=== PATIENT | male | born 1940 | race Caucasian/White ===

== ENCOUNTER 2020-06-15 20:09 | Inpatient (IN) | payer MEDICARE, BC ==
[~2020-06-15] VITALS: Ht 185.4 cm; Wt 94.8 kg
[2020-06-24] MEDS ORDERED: SINEQUAN50 MG PO (10:22)
[2020-06-24] MEDS ORDERED: FLOMAX0.4 MG PO (10:23)
[2020-06-24] MEDS ORDERED: COREG25 MG PO (10:23)
[2020-06-24] MEDS ORDERED: ATARAX 25 MG TA25 MG PO (10:24)
[2020-06-24] MEDS ORDERED: ROPINIROLE HCL0.5 MG PO (10:24)
[2020-06-24] MEDS ORDERED: METHOCARBAMOL500 MG PO (10:25)
[2020-06-24] MEDS ORDERED: VITAMIN D3 PO (10:25)
[2020-06-24] MEDS ORDERED: [UNRECOGNIZED DRUG - OTHER] PO (10:26)
[2020-06-24] MEDS ORDERED: SYSTANE ULTRA EYE EACH EYE (10:27)
[2020-06-24] MEDS ORDERED: POTASSIUM99 M1 PO (10:27)
[2020-06-24] MEDS ORDERED: BENADRYL25 MG PO (10:28)
[2020-06-24] MEDS ORDERED: CETIRIZINE HCL5 M1 PO (10:28)
[2020-06-24] MEDS ORDERED: ACETAMINOPHEN325 MG PO (10:29)
[2020-06-24 11:02] LABS: BASOPHILS 0.7 % (0-2); EOSINOPHILS 5.9 % (0-7); HEMATOCRIT 41.2 % (42.0-54.0); HEMOGLOBIN 13.7 g/dL (13.5-17.5); IMMATURE GRANULOCYTES 1.6 % (0-5); LYMPHOCYTES 34.2 % (15-50); MCH 31.4 pg (26.0-34.0); MCHC 33.3 g/dL (31.0-37.0); MCV 94.5 fL (80.0-100.0); MEAN PLATELET VOLUME 9.9 fL (7.4-10.4); MONOCYTES 10.1 % (2-11); NEUTROPHILS 47.5 % (40-80); RBC 4.36 10x6/uL (4.20-6.10); RDW 13.3 % (11.5-14.5); WBC 4.3 10x3/uL (4.8-10.8)
[2020-06-24 11:08] LABS: ANION GAP 9.3 mmol/L (8-16); CALCIUM 8.7 mg/dL (8.5-10.1); CARBON DIOXIDE 29.1 mmol/L (21.0-32.0); CREATININE - SERUM 1.1 mg/dL (0.6-1.3); POTASSIUM - SERUM 4.4 mmol/L (3.5-5.1)
[2020-06-24 11:48] LABS: PLATELET COUNT 114 10x3/uL (130-400)
[2020-06-24] MEDS ORDERED: KENALOG 0.1 % 115 GM TOPICAL (13:48)
[2020-06-24] MEDS ORDERED: CLOBETASOL PROP15 GM TP (13:49)
[2020-06-28] VITALS (9 sets, daily range): BP systolic 129–163; BP diastolic 49–92; BMI 27.7; BMI 27.6
--- NOTE | 2020-06-28 12:47 | NUR ---
NO SCD'S PLACED DUE TO HISTORY OF DVT, KARANRJUNE.
--- NOTE | 2020-06-28 20:00 | NUR ---
PT LYING IN BED SLEEPING WITHOUT DISTRESS, DAUGHTER AT BEDSIDE. SCDS PLACED ON PT BILAT. IV LEFT HAND INFUSING NS @ 125. O2 2L/NC. PROVIDED INCENTIVE SPIROMETER AND INSTRUCTED ON USE. PT WAS ABLE TO DEMONSTRATE APPROPRIATE USE. PROVIDED ICE CHIPS. DENIES OTHER NEEDS AT THIS TIME. CL IN REACH, WILL CTM
--- NOTE | 2020-06-28 22:00 | NUR ---
PT STATES PAIN 12/14, DENIES NEEDS. CL IN REACH, WILL CTM
[2020-06-29] VITALS: BP 160/88
--- NOTE | 2020-06-29 01:30 | NUR ---
ASSISTED PT TO SITTING POSITION, STATES LYING IN BED SO LONG MAKES HIS BACK HURTS. INSTRUCTED TO USE PILLOW TO SPLINT FOR MOVEMENT, COUGHING AND DEEP BREATHING. PT USED INCENTIVE SPIROMETER. PROVIDED LEMON MOUTH SWABS, ICE CHIPS AND CHAPSTICK FOR DRY MOUTH. PLACED HUMIDIFICATION ON O2. DENIES OTHER NEEDS AT THIS TIME. CL IN REACH, WILL CTM
[2020-06-29 04:00] VITALS: BP 150/80
[2020-06-29 06:53] LABS: BASOPHILS 0 % (0-2); EOSINOPHILS 0 % (0-7); HEMATOCRIT 37.8 % (42.0-54.0); HEMOGLOBIN 12.8 g/dL (13.5-17.5); IMMATURE GRANULOCYTES 0.3 % (0-5); MCH 31.4 pg (26.0-34.0); MCHC 33.9 g/dL (31.0-37.0); MCV 92.6 fL (80.0-100.0); MEAN PLATELET VOLUME 9.9 fL (7.4-10.4); MONOCYTES 9.2 % (2-11); NEUTROPHILS 74.5 % (40-80); PLATELET COUNT 118 10x3/uL (130-400); RBC 4.08 10x6/uL (4.20-6.10); RDW 13.1 % (11.5-14.5); WBC 7.8 10x3/uL (4.8-10.8)
[2020-06-29 07:17] LABS: CALC OSMOLALITY 275 mosm/kg (275-300); CALCIUM 8.2 mg/dL (8.5-10.1); CARBON DIOXIDE 22.7 mmol/L (21.0-32.0); CHLORIDE - SERUM 105 mmol/L (98-107); CREATININE - SERUM 0.9 mg/dL (0.6-1.3); GLUCOSE 95 mg/dL (74-106); POTASSIUM - SERUM 4.3 mmol/L (3.5-5.1); SODIUM 138 mmol/L (136-145); UREA NITROGEN 12 mg/dL (7-18); eGFR NON AFRICAN AMERICAN 86 mL/min (90-120)
[2020-06-29 08:37] VITALS: BP 164/77
[2020-06-29 12:57] VITALS: BP 158/68
[2020-06-29 14:39] VITALS: Ht 185.4 cm; Wt 94.8 kg
[2020-06-29 17:19] VITALS: BP 125/63
[2020-06-29 20:00] VITALS: BP 134/65
--- NOTE | 2020-06-29 20:00 | NUR ---
PT SITTING UP IN BED WITHOUT DISTRESS, AOX4. DAUGHTER AT BEDSIDE. STATES PAIN IN ABD 1/10 BUT THAT PAIN IN RIGHT HAND 5/10 FROM IV. REMOVED EXTRA IV PER DAUGHTER REQUEST. SHE STATES HE WILL NOT BE ABLE TO SLEEP TONIGHT WITH IT. IV LEFT HAND CONTINUES INFUSING NS @ 125 AND DILAUDID SAILMAKER. PT USING FOR PAIN. STATES THROAT IS HURTING BUT IS BETTER WITH NASAL SPRAY. PROVIDED ICE CHIPS. REFUSES SCDS TONIGHT. DENIES OTHER NEEDS. CL IN REACH, WILL CTM
[2020-06-30] VITALS: BP 119/86
[2020-06-30 04:00] VITALS: BP 174/77
--- NOTE | 2020-06-30 07:05 | NUR ---
A&O RESTING IN BED WITH EYES OPEN. DAUGHTER AT BEDSIDE. VERY [place], HEARING AID TO RIGHT EAR. POD #2 HALS HEMICOLECTOMY, MIDLINE INCISION WITH 2 LAP SITES TO ABDOMEN, C/D/I. REFUSED SCDS. UP WITH PHYSICAL THERAPY. IV TO LEFT HAND, NS INFUSING @ 125ML/HR. SITE PATENT WITHOUT REDNESS OR SWELLING. DILAUDID HOMEMAKING REHABILITATION CONSULTANT MANAGING PAIN AT THIS TIME. NO S/S OF ACUTE DISTRESS NOTED. CALL LIGHT IN REACH. WILL CONTINUE TO MONITOR.
[2020-06-30 07:24] LABS: BASOPHILS 0.4 % (0-2); EOSINOPHILS 0.4 % (0-7); HEMATOCRIT 34.2 % (42.0-54.0); HEMOGLOBIN 11.2 g/dL (13.5-17.5); IMMATURE GRANULOCYTES 0.2 % (0-5); LYMPHOCYTES 27.8 % (15-50); MCH 30.8 pg (26.0-34.0); MCHC 32.7 g/dL (31.0-37.0); MEAN PLATELET VOLUME 9.7 fL (7.4-10.4); MONOCYTES 12.5 % (2-11); NEUTROPHILS 58.7 % (40-80); PLATELET COUNT 108 10x3/uL (130-400); RBC 3.64 10x6/uL (4.20-6.10); RDW 13.5 % (11.5-14.5)
[2020-06-30 07:33] LABS: WBC 5.3 10x3/uL (4.8-10.8)
[2020-06-30 08:10] LABS: CARBON DIOXIDE 22.8 mmol/L (21.0-32.0); CHLORIDE - SERUM 108 mmol/L (98-107); CREATININE - SERUM 0.7 mg/dL (0.6-1.3); GLUCOSE 88 mg/dL (74-106); SODIUM 139 mmol/L (136-145); eGFR NON AFRICAN AMERICAN > 90 mL/min (90-120)
[2020-06-30 08:11] LABS: CALC OSMOLALITY 278 mosm/kg (275-300); POTASSIUM - SERUM 3.6 mmol/L (3.5-5.1); UREA NITROGEN 17 mg/dL (7-18)
--- NOTE | 2020-06-30 08:28 | NUR ---
FAMILY AT BEDSIDE.PATIENT IS GETTING UP TO BATHROOM WITH ZOË GOMEZ LPN
[2020-06-30 08:33] VITALS: BP 124/82
--- NOTE | 2020-06-30 16:06 | MORECARE ---
CASE MANAGEMENT DISCHARGE SUMMARY PATIENT: KEILA ANDRES UNIT: [id number] ADM DATE: 06/28/20 AGE: 79 : 39 SEX: M ROOM/BED: D.2237 AUTHOR: ESTER ROBERTS PHYSICIAN: REFERRING PHYSICIAN: VIK MARROQUIN MD DATE OF SERVICE: 06/30/20 Discharge Plan Patient Name: KEILA ANDRES Facility: [facility]:[place] : 1940 Planned Disposition: Anticipated Discharge Date: Discharge Date: Expected LOS: Initial Reviewer: [email or web address] Initial Review Date: 06/28/2020 Generated: 06/30/20 5:05 pm Comments DCP- Discharge Planning Updated by [email or web address]: Ashlee Smith on 06/30/20 3:[address] Patient Name: KEILA ANDRES Admission Status: Elective Accout number: [id number] Admission Date: 06-28-2020 : 1940 Admission Diagnosis:BENIGN NEOPLASM OF COLON, UNSPECIFIED Attending: VIK MARROQUIN Current LOS: 2 Anticipated DC Date: Planned Disposition: Primary Insurance: MEDICARE A & B Discharge Planning Comments: CM met with patient at bedside after explaining CM role and obtaining verbal consent. CM discussed availability / needs of home health, REHAB and medical equipment. PATIENT DENIES ANY DISCHARGE NEEDS. ANTICIPATES DISCHARGE TO HOME SATURDAY OR THIS . CM TO FOLLOW AND ASSESS NEEDED. Study Abroad Coordinator: Ashlee Smith DCPIA - Discharge Planning Initial Assessment Updated by [email or web address]: Ashlee Smith on 06/30/20 3:59 pm * Is the patient Alert and Oriented? Yes * PCP [facility]ZARA IN [place] * Pharmacy [facility] * Preadmission Environment Home with Family * ADLs Independent * Other Equipment WALKER, CANE * List name and contact numbers for known caregivers / representatives who currently or will assist patient after discharge: DAUGHTER * Community resources currently utilized None * Additional services required to return to the preadmission environment? No * Can the patient safely return to the preadmission environment? Yes * Has this patient been hospitalized within the prior 30 days at any hospital? No Patient Name: KEILA ANDRES Page [phone] at 1606 All edits/amendments must be made on the electronic document DICTATION DATE: 06/30/201604 DIE STORAGE CLERK: ROSELYN 06/30/20 160 RPT#: [id number] DC DATE: STATUS: ADM IN [facility] [address] [place] [address] END OF REPORT
[2020-06-30 17:26] VITALS: BP 143/81
--- NOTE | 2020-06-30 18:32 | NUR ---
A&O SITTING UP IN CHAIR. NO C/O PAIN. NO S/S OF ACUTE DISTRESS NOTED. IV TO LEFT HAND INFILTRATED. DISCONTINUED IV, CATHETER TIP INTACT. RESITED IV TO RIGHT WRIST, 22 GA X3 TRIES. BLOOD RETURN PRESENT. DENIES ANY NEEDS AT THIS TIME. CALL LIGHT IN REACH. WILL CONTINUE TO MONITOR.
[2020-06-30 20:00] VITALS: BP 143/59
[2020-07-01] VITALS: BP 141/62
--- NOTE | 2020-07-01 03:31 | NUR ---
ASSESSED AT THE BEGINNING OF THE SHIFT. PT IS ALERT AND ORIENTED, ABLE TO VERBALIZE NEEDS. DAUGHTER HAS REMAINED IN THE ROOM. INCISION SITES FROM SURGERY ARE CLEAN DRY AND INTACT. HE IS REFUSING SCD'S AND IS RESTING QUIET.
[2020-07-01 04:00] VITALS: BP 168/74
--- NOTE | 2020-07-01 07:05 | NUR ---
REC'D REPORT FROM [facility]SHIFT. IV TO RT WRIST IS S'LOCKED. PT FAMILY AT BEDSIDE. PT STATES HE HOPES TO D/C TODAY. [place].
[2020-07-01 07:41] LABS: BASOPHILS 0.5 % (0-2); EOSINOPHILS 2.3 % (0-7); HEMATOCRIT 33.5 % (42.0-54.0); HEMOGLOBIN 11.5 g/dL (13.5-17.5); IMMATURE GRANULOCYTES 0.2 % (0-5); LYMPHOCYTES 30.6 % (15-50); MCH 31.9 pg (26.0-34.0); MCHC 34.3 g/dL (31.0-37.0); MCV 93.1 fL (80.0-100.0); MEAN PLATELET VOLUME 9.7 fL (7.4-10.4); MONOCYTES 13.1 % (2-11); NEUTROPHILS 53.3 % (40-80); PLATELET COUNT 106 10x3/uL (130-400); RDW 13.3 % (11.5-14.5); WBC 4.3 10x3/uL (4.8-10.8)
[2020-07-01 07:52] LABS: CALC OSMOLALITY 279 mosm/kg (275-300); CALCIUM 7.8 mg/dL (8.5-10.1); CARBON DIOXIDE 25.6 mmol/L (21.0-32.0); CHLORIDE - SERUM 109 mmol/L (98-107); CREATININE - SERUM 0.8 mg/dL (0.6-1.3); GLUCOSE 93 mg/dL (74-106); POTASSIUM - SERUM 3.6 mmol/L (3.5-5.1); SODIUM 141 mmol/L (136-145); eGFR NON AFRICAN AMERICAN > 90 mL/min (90-120)
[2020-07-01 07:53] LABS: UREA NITROGEN 10 mg/dL (7-18)
[2020-07-01 08:34] VITALS: BP 132/69
[2020-07-01 12:55] VITALS: BP 148/84
[2020-07-01] MEDS ORDERED: HYDROCODON-ACE1 EA10 PO (13:31)
--- NOTE | 2020-07-01 14:06 | NUR ---
Nutrition follow-up: Pts diet advanced to regular as tolerated today Labs reviewed Wt: 209# RDN will monitor pateints diet tolerance and progress. RDN following.
--- NOTE | 2020-07-01 15:30 | NUR ---
PT DISCHARGE INSTRUCTIUONS REV'D AND PT STATES UNDERSTADNING. IV DC'D TIP INTACT. PT ESCORTED OUT VIA WHEELCHAIR BY HOSPITAL STAFF.
--- NOTE | 2020-07-04 08:48 | MORECARE ---
CASE MANAGEMENT DISCHARGE SUMMARY PATIENT: KEILA ANDRES UNIT: [id number] ADM DATE: 06/28/20 AGE: 79 : 39 SEX: M ROOM/BED: D.2237 AUTHOR: ALEJANDRADOC PHYSICIAN: REFERRING PHYSICIAN: VIK MARROQUIN MD DATE OF SERVICE: 07/04/20 Discharge Plan Patient Name: KEILA ANDRES Facility: [facility]:[place] : 1940 Planned Disposition: Anticipated Discharge Date: Discharge Date: 07/01/2020 Expected LOS: Initial Reviewer: [email or web address] Initial Review Date: 06/28/2020 Generated: 07/04/20 9:47 am DCP- Discharge Planning Updated by [email or web address]: Ashlee Smith on 06/30/20 3:[address] Patient Name: KEILA ANDRES Admission Status: Elective Accout number: [id number] Admission Date: 06-28-2020 : 1940 Admission Diagnosis:BENIGN NEOPLASM OF COLON, UNSPECIFIED Attending: VIK MARROQUIN Current LOS: 2 Anticipated DC Date: Planned Disposition: Primary Insurance: MEDICARE A & B Discharge Planning Comments: CM met with patient at bedside after explaining CM role and obtaining verbal consent. CM discussed availability / needs of home health, REHAB and medical equipment. PATIENT DENIES ANY DISCHARGE NEEDS. ANTICIPATES DISCHARGE TO HOME SATURDAY OR THIS . CM TO FOLLOW AND ASSESS NEEDED. Can Carrier: Ashlee Smith DCPIA - Discharge Planning Initial Assessment Updated by [email or web address]: Ashlee Smith on 06/30/20 3:59 pm * Is the patient Alert and Oriented? Yes * PCP [facility]ZARA IN [place] * Pharmacy [facility] * Preadmission Environment Home with Family * ADLs Independent * Other Equipment WALKER, CANE * List name and contact numbers for known caregivers / representatives who currently or will assist patient after discharge: DAUGHTER * Community resources currently utilized None * Additional services required to return to the preadmission environment? No * Can the patient safely return to the preadmission environment? Yes * Has this patient been hospitalized within the prior 30 days at any hospital? No Last DP export: 06/30/20 3:06 p Patient Name: KEILA ANDRES Page [phone] at 0848 All edits/amendments must be made on the electronic document DICTATION DATE: 07/04/20847 COMPENSATION AND HRIS ANALYST: ROSELYN 07/04/20847 RPT#: [id number] DC DATE:07/01/20 STATUS: DIS IN [facility] [address] [facility] [place] [address] END OF REPORT
--- NOTE | 2020-07-05 09:49 | OP ---
PATIENT NAME: KEILA ANDRES MEDICAL RECORD: [id number] :[birth year] LOCATION:D.MS [id number] ADMISSION DATE:06/28/20 SURGEON: DAMIEN MARROQUIN MD DATE OF OPERATION: 06/28/2020 PREOPERATIVE DIAGNOSES: 1. Right colon polyp. 2. Hypertension. 3. History of lymphoma. POSTOPERATIVE DIAGNOSES: 1. Right colon polyp. 2. Hypertension. 3. History of lymphoma. PROCEDURE: Hand-assisted laparoscopic right hemicolectomy. SURGEON: Damien Marroquin MD REPORT OF PROCEDURE: The patient's abdomen was prepped and draped in sterile fashion. A skin incision was made near the patient's umbilicus. Electrocautery was used to dissect through the subcutaneous tissues and fascia and we entered the abdominal cavity. A Gelport was inserted with a 5-mm trocar within it. After we insufflated the abdomen and a 5-mm trocar was placed in the epigastrium, another was placed in the right lateral subcostal region. The patient had some adhesions present on the right side of the abdomen surrounding the colon. There was a large amount of fatty tissue present throughout the abdomen. We eventually took down the white line of Toldt and was able to start mobilizing the right colon medially. We then took down some of the attachments of the mesentery and peritoneum to the distal small bowel. We came up to the hepatic flexure and took this down using electrocautery and eventually was able to get the colon mobilized enough medially and inferiorly where we could eviscerate it through the wound protector. The distal small bowel was transected with a 55 white load LOULOU stapler and the proximal transverse colon was transected with a 55 blue load LOULOU stapler. The mesentery was taken down with sequential clamp and tie technique. Once we had the specimen off, then I opened it up and could see the mass present in the mid portion of the colon. The 2 ends of the bowel were anastomosed in a [id number] fashion using a 55 blue load LOULOU stapler. This was done by making small enterotomies and firing the stapler through the conjoint areas. We then closed off the enterotomies using a 30 blue load TA stapler. The staple lines were then oversewn with Lemberted 3-0 silks. We placed the bowel back into the abdominal cavity. We then reinsufflated and inspected the abdomen and made sure there is no sign of any active bleeding, which there was none. We irrigated out the abdomen thoroughly with normal saline. At this point, the ports and insufflation were then removed. The midline fascia was closed with running #1 loop PDS times 2. We had to tack the umbilicus back down to the fascia because this had to be elevated in order to fully see the fascial layer. This was done with 3-0 Vicryl. Subcutaneous tissues were reapproximated with interrupted 3-0 Vicryl and irrigated with normal saline. The skin incisions were all closed with jase and dressed appropriately. COMPLICATIONS: None. CONDITION: Stable. OPERATIVE REPORT [id number] KEILA ANDRES ANESTHESIA: General endotracheal. BLOOD LOSS: 100 mL. TRANSINT:[id number] Voice Confirmation ID: [id number] DOCUMENT ID: [id number] DAMIEN MARROQUIN MD at 0949 CC: PATRICK SPRINGER MD, CON[facility] and SANJIV KAPOOR [id number] DICTATION DATE: 06/28/20 1409 MERGERS AND ACQUISITIONS ASSOCIATE: 06/28/209 DIS IN 07/01/20 [address] [place] [address]
== END 2020-07-01 16:09 | disposition home or self-care (01) | DRG 331 ==
LOC: D.SDCHOLD 06-28 08:00 → D.MS 06-28 08:20 → D.SDCHOLD 06-28 10:15 → D.MS 06-28 14:33
PROVIDERS: ADMIT Surgery; ATTEND Surgery
PROC: 0DTF0ZZ Resection of Right Large Intestine, Open Approach (ICD-10-PCS; principal; 2020-06-28 10:15)
DX: D12.6 Benign neoplasm of colon, unspecified (principal); I10 Essential (primary) hypertension; R09.89 Other specified symptoms and signs involving the circulatory and respiratory systems